=== PATIENT | female | born 1945 | race Caucasian/White ===

== ENCOUNTER 2022-04-29 18:09 | Inpatient (IN) ==
[2022-04-29] MEDS ORDERED: Melatonin 3 MG TABLET PO PRN (22:31)
[2022-04-29] MEDS ORDERED: Naloxone 0.4 MG/ML INJ IVP PRN (22:31)
[2022-04-29] MEDS ORDERED: Ondansetron ODT 4 MG TAB.RAPDIS SL PRN (22:31)
[2022-04-29 23:02] LABS: Basophils % 0.3 %; Eosinophils # 0.1 K/mcL (0.0-0.6); Eosinophils % 1.9 %; Hematocrit 33.4 % (35.3-44.9); Hemoglobin 10.4 g/dL (11.5-15.4); Immature Granulocytes % 2.5 % (0-4); Lymphocytes # 0.8 K/mcL (0.6-4.6); Mean Corpuscular HGB Conc 31.1 g/dL (31.6-35.5); Mean Corpuscular Hemoglobin 30.9 pg (28.0-33.3); Mean Corpuscular Volume 99.1 fL (83.0-100.0); Mean Platelet Volume 10.2 fL (9.4-12.4); Monocytes # 0.3 K/mcL (0.0-1.3); Monocytes % 8.2 %; Neutrophils # 2.4 K/mcL (1.6-8.9); Platelet Count 127 K/mcL (140-400); Red Blood Count 3.37 M/mcL (3.82-4.97); Red Cell Distribution Width 14.9 % (11.5-14.5); Segmented Neutrophils % 65.1 %; White Blood Count 3.6 K/mcL (4.3-11.1)
[2022-04-29 23:18] LABS: Albumin 3.6 g/dL (3.5-5.7); Albumin/Globulin Ratio 1.3 (1.1-2.2); Bilirubin,Total 0.3 mg/dL (0.3-1.0); Calcium 8.6 mg/dL (8.6-10.3); Globulin 2.7 g/dL (2.4-3.5); Magnesium 1.4 mg/dL (1.6-2.6); Phosphorous 5.5 mg/dL (2.7-4.5); Potassium 5.5 mEq/L (3.5-5.1); Total Protein 6.3 g/dL (6.4-8.9)
[2022-04-30] MEDS ORDERED: D5% in Water 1,000 ML IVC PRN (00:16)
[2022-04-30] MEDS ORDERED: Dextrose Gel 15 GM/37.5 ML TUBE PO PRN ×2 (00:16)
[2022-04-30] MEDS ORDERED: *HR* Dextrose 50 % in Water (Syg) 50 ML SYRINGE IVP PRN (00:16)
[2022-04-30 02:06] LABS: Hematocrit 33.1 % (35.3-44.9); Hemoglobin 10.1 g/dL (11.5-15.4); Mean Corpuscular HGB Conc 30.5 g/dL (31.6-35.5); Mean Corpuscular Hemoglobin 30.2 pg (28.0-33.3); Mean Corpuscular Volume 99.1 fL (83.0-100.0); Mean Platelet Volume 10.6 fL (9.4-12.4); Platelet Count 151 K/mcL (140-400); Red Blood Count 3.34 M/mcL (3.82-4.97); Red Cell Distribution Width 14.9 % (11.5-14.5); White Blood Count 3.9 K/mcL (4.3-11.1)
[2022-04-30 02:28] LABS: Calcium 8.4 mg/dL (8.6-10.3); Potassium 5.1 mEq/L (3.5-5.1)
[2022-04-30 02:40] LABS: Thyroid Stimulating Hormone 0.931 mcIU/mL (0.340-5.600)
[2022-04-30] MEDS: Insulin LISPRO 300 UNITS/3 ML VIAL SUBQ SCH ×4 (07:56→19:40)
[2022-04-30] MEDS: Nystatin POWDER 30 GM BOTTLE TP SCH ×2 (09:53→19:40)
[2022-04-30 10:18] LABS: VBG HCO3 17 mEq/L (21-27); VBG PCO2 44 mmHg (41-51); VBG PO2 49 mmHg (25-50)
[2022-04-30 10:32] LABS: Uric Acid 4.4 mg/dL (2.3-7.6)
[2022-04-30 11:06] LABS: Bilirubin,Urine Negative (Negative); Blood,Urine Large (Negative); Clarity,Urine Turbid (Clear); Color,Urine Light-Yellow (Yellow); Glucose,Urine (UA) Normal (Normal); Hyaline Casts,Urine Few per lpf (None Seen); Ketones,Urine Negative (Negative); Leukocyte Esterase,Urine Negative (Negative); Nitrite,Urine Negative (Negative); Protein,Urine 50 mg/dL (Neg-Trace); RBC,Urine TNTC per hpf (0-3); Specific Gravity,Urine 1.018 (1.010-1.025); Squamous Epithelial Cell,Urine Few per hpf (None-Few); Urobilinogen,Urine Normal (Normal); WBC,Urine 15-30 per hpf (0-3)
[2022-04-30 11:07] LABS: Protein/Creatinine Ratio,Urine 0.83 mg/mg (0.00-0.20)
[2022-04-30] MEDS: Sodium Bicarbonate 50 MEQ in 0.45 % Sodium Chloride 1,000 ML IVC SCH ×2 (11:56→22:19)
[2022-04-30 11:58] LABS: Adenovirus Not Detected (Not Detect); Bordetella Pertussis Not Detected (Not Detect); Chlamydophila pneumoniae Not Detected (Not Detect); Coronavirus 229E Not Detected (Not Detect); Coronavirus HKU1 Not Detected (Not Detect); Coronavirus NL63 Not Detected (Not Detect); Coronavirus OC43 Not Detected (Not Detect); Human Metapneumovirus Not Detected (Not Detect); Human Rhinovirus/Enterovirus Not Detected (Not Detect); Influenza A Subtype 2009 H1 Not Detected (Not Detect); Influenza B Not Detected (Not Detect); Mycoplasma pneumoniae Not Detected (Not Detect); Parainfluenza Virus 1 Not Detected (Not Detect); Parainfluenza Virus 2 Not Detected (Not Detect); Parainfluenza Virus 3 Not Detected (Not Detect); Parainfluenza Virus 4 Not Detected (Not Detect); Respiratory Syncytial Virus Not Detected (Not Detect); SARS-CoV-2 Not Detected (Not Detect)
[2022-04-30] MEDS: cefTRIAXone 1,000 MG in Water for inj. (sterile) 10 ML IVP SCH (14:32)
[2022-04-30 21:21] LABS: Complement C3 158 mg/dL (87-200)
[2022-05-01 00:34] LABS: ABG Base Excess -6 mEq/L (-2 to 3); ABG HCO3 16 mEq/L (21-27); ABG Oxygen Saturation 94 % (95-98); ABG PCO2 22 mmHg (35-45); ABG PH 7.46 pH Units (7.32-7.45); ABG PO2 63 mmHg (85-104); ABG TCO2 16 mEq/L (20-26)
[2022-05-01 03:12] LABS: Eosinophils # 0.1 K/mcL (0.0-0.6); Eosinophils % 2.5 %; Hematocrit 32.2 % (35.3-44.9); Hemoglobin 10.2 g/dL (11.5-15.4); Immature Granulocytes % 2.2 % (0-4); Lymphocytes # 1.1 K/mcL (0.6-4.6); Lymphocytes % 31.2 %; Mean Corpuscular HGB Conc 31.7 g/dL (31.6-35.5); Mean Corpuscular Hemoglobin 30.9 pg (28.0-33.3); Mean Corpuscular Volume 97.6 fL (83.0-100.0); Mean Platelet Volume 10.5 fL (9.4-12.4); Monocytes # 0.4 K/mcL (0.0-1.3); Monocytes % 11.9 %; Neutrophils # 1.9 K/mcL (1.6-8.9); Platelet Count 152 K/mcL (140-400); Red Cell Distribution Width 14.8 % (11.5-14.5); Segmented Neutrophils % 52.2 %; White Blood Count 3.6 K/mcL (4.3-11.1)
[2022-05-01 03:19] LABS: Calcium 8.1 mg/dL (8.6-10.3); Potassium 4.6 mEq/L (3.5-5.1)
[2022-05-01 06:10] LABS: Hepatitis B Surface Antigen Nonreactive (Nonreactive)
[2022-05-01 06:40] LABS: Hepatitis A Antibody IgM Nonreactive (Nonreactive); Hepatitis B Core IgM Nonreactive (Nonreactive); Hepatitis C Virus Antibody Nonreactive (Nonreactive)
[2022-05-01] MEDS: Budesonide/Formoterol 160/4.5 1 PUFF INH IH SCH ×2 (07:52→20:30)
[2022-05-01] MEDS: Nystatin POWDER 30 GM BOTTLE TP SCH ×2 (08:30→21:06)
[2022-05-01] MEDS: Fluticasone Propionate Nasal 50 MCG/SPRAY BOTTLE NS SCH (08:30)
[2022-05-01] MEDS: Insulin LISPRO 300 UNITS/3 ML VIAL SUBQ SCH ×4 (08:32→20:20)
[2022-05-01] MEDS: Isosorbide MONOnitrate (24 HR) 30 MG TAB.ER.24H PO SCH (08:32)
[2022-05-01] MEDS: Sucralfate 1 GM TABLET PO SCH ×2 (08:32→15:01)
[2022-05-01] MEDS: Multivit/Ca/Min/Fe/FA 1 TAB TABLET PO SCH (08:32)
[2022-05-01] MEDS: Magnesium Oxide 400 MG TABLET PO SCH (08:32)
[2022-05-01] MEDS: Aspirin Enteric Coated 81 MG Tablet PO SCH ×2 (08:32→19:58)
[2022-05-01] MEDS: allopurinoL 300 MG TABLET PO SCH (08:33)
[2022-05-01] MEDS: cefTRIAXone 1,000 MG in Water for inj. (sterile) 10 ML IVP SCH (08:33)
[2022-05-01] MEDS: Primidone 50 MG TABLET PO SCH ×2 (08:33→19:59)
[2022-05-01] MEDS ORDERED: Pregabalin 75 MG CAPSULE PO SCH (09:00)
[2022-05-01] MEDS: Sodium Bicarbonate 50 MEQ in 0.45 % Sodium Chloride 1,000 ML IVC SCH (13:46)
[2022-05-01] MEDS: *HR* Heparin 5,000 UNIT/ML VIAL SQ SCH ×2 (15:01→22:23)
[2022-05-01 18:54] LABS: Adenovirus F 40/41 PCR Not detected (Not detect); Astrovirus PCR Not detected (Not detect); C.difficile Toxin A/B Gene PCR Not detected (Not detect); Campylobacter by PCR Not detected (Not detect); Cryptosporidium by PCR Not detected (Not detect); Cyclospora cayetanensis PCR Not detected (Not detect); Entamoeba histolytica PCR Not detected (Not detect); Enteroaggregative E.coli(EAEC) Not detected (Not detect); Enteropathogenic E.coli(EPEC) Not detected (Not detect); Enterotoxigenic E.coli (ETEC) Not detected (Not detect); Giardia lamblia PCR Not detected (Not detect); Norovirus GI/GII PCR Not detected (Not detect); Plesiomonas shigelloides PCR Not detected (Not detect); Rotavirus A PCR Not detected (Not detect); Salmonella PCR Not detected (Not detect); Sapovirus PCR Not detected (Not detect); Shig/EnteroinvasiveE coli EIEC Not detected (Not detect); Shigalike tox-prod E coli STEC Not detected (Not detect); Vibrio PCR Not detected (Not detect); Vibrio cholerae PCR Not detected (Not detect); Yersinia enterocolitica PCR Not detected (Not detect)
[2022-05-01] MEDS ORDERED: *HR* HYDROcodone/Acet 10/325 mg TABLET PO ONE (19:29)
[2022-05-01] MEDS ORDERED: Ipratropium/Albuterol Neb 3 ML IH PRN (19:41)
[2022-05-01] MEDS: Pregabalin 50 MG CAPSULE PO SCH (19:58)
[2022-05-01] MEDS ORDERED: QUEtiapine Fumarate 25 MG TABLET PO SCH (21:00)
[2022-05-02] MEDS ORDERED: QUEtiapine Fumarate 25 MG TABLET PO ONE (00:18)
[2022-05-02 02:16] LABS: BUN/Creatinine Ratio 28 (6-26); Blood Urea Nitrogen 27 mg/dL (8-23); Carbon Dioxide 22 mEq/L (23-29); Chloride 111 mEq/L (98-107); Glucose 103 mg/dL (70-105); Osmolality,Calculated 295 (280-300); Potassium 4.1 mEq/L (3.5-5.1); Sodium 140 mEq/L (136-145); eGFR For African Americans > 60 (> 60); eGFR For Non-African Americans 57 (> 60)
[2022-05-02] MEDS: *HR* Heparin 5,000 UNIT/ML VIAL SQ SCH ×2 (05:43→15:37)
[2022-05-02] MEDS: Insulin LISPRO 300 UNITS/3 ML VIAL SUBQ SCH ×3 (08:14→16:45)
[2022-05-02] MEDS: Magnesium Oxide 400 MG TABLET PO SCH (08:26)
[2022-05-02] MEDS: allopurinoL 300 MG TABLET PO SCH (08:26)
[2022-05-02] MEDS: Pregabalin 50 MG CAPSULE PO SCH (08:27)
[2022-05-02] MEDS: Isosorbide MONOnitrate (24 HR) 30 MG TAB.ER.24H PO SCH (08:27)
[2022-05-02] MEDS: Primidone 50 MG TABLET PO SCH (08:27)
[2022-05-02] MEDS: Multivit/Ca/Min/Fe/FA 1 TAB TABLET PO SCH (08:27)
[2022-05-02] MEDS: Aspirin Enteric Coated 81 MG Tablet PO SCH (08:27)
[2022-05-02] MEDS: Sucralfate 1 GM TABLET PO SCH ×2 (08:27→15:37)
[2022-05-02] MEDS: Fluticasone Propionate Nasal 50 MCG/SPRAY BOTTLE NS SCH (08:28)
[2022-05-02] MEDS: Budesonide/Formoterol 160/4.5 1 PUFF INH IH SCH (10:10)
[2022-05-02] MEDS: Nystatin POWDER 30 GM BOTTLE TP SCH (12:38)
[2022-05-02 15:52] VITALS: BP 115/64; PULSE 67; TEMP 98.4
[2022-05-02 16:53] VITALS: O2SAT 99
[2022-05-03 12:40] LABS: ANA IgG by ELISA NONE DETECTED (None Detected)
[2022-05-04 08:45] LABS: ANCA IFA Titer <1:20 (<1:20)
[2022-05-04 10:39] LABS: ANCA IFA Pattern NONE DETECTED (None Detected); Serine Protease-3 Antibody 0 AU/mL (0-19)
== END 2022-05-02 18:43 | disposition home health service (06) | DRG 682 ==
LOC: 2ANU
PROVIDERS: ADMIT Internal Medicine; ATTEND Internal Medicine

== ENCOUNTER 2022-07-31 19:40 | Observation (INO) ==
[2022-08-01] MEDS ORDERED: Ondansetron 4 MG/2 ML VIAL IVP PRN (00:34)
[2022-08-01] MEDS ORDERED: Acetaminophen 325 MG TABLET PO PRN (00:34)
[2022-08-01] MEDS ORDERED: Naloxone 0.4 MG/ML INJ IVP PRN (00:34)
[2022-08-01 01:53] LABS: Bilirubin,Urine Negative (Negative); Blood,Urine Negative (Negative); Clarity,Urine Clear (Clear); Color,Urine Colorless (Yellow); Glucose,Urine (UA) Normal (Normal); Ketones,Urine Negative (Negative); Leukocyte Esterase,Urine Negative (Negative); Nitrite,Urine Negative (Negative); Protein,Urine Negative (Neg-Trace); Specific Gravity,Urine 1.019 (1.010-1.025); Urobilinogen,Urine Normal (Normal)
[2022-08-01] MEDS ORDERED: Dextrose Gel 15 GM/37.5 ML TUBE PO PRN ×2 (02:19)
[2022-08-01] MEDS ORDERED: *HR* Dextrose 50 % in Water (Syg) 50 ML SYRINGE IVP PRN (02:19)
[2022-08-01] MEDS ORDERED: D5% in Water 1,000 ML IVC PRN (02:19)
[2022-08-01 03:03] LABS: Basophils % 0.2 %; Eosinophils # 0.1 K/mcL (0.0-0.6); Eosinophils % 0.9 %; Hematocrit 33.8 % (35.3-44.9); Hemoglobin 10.6 g/dL (11.5-15.4); Immature Granulocytes % 7.2 % (0-4); Lymphocytes # 1.4 K/mcL (0.6-4.6); Lymphocytes % 26.6 %; Mean Corpuscular HGB Conc 31.4 g/dL (31.6-35.5); Mean Corpuscular Hemoglobin 30.1 pg (28.0-33.3); Mean Platelet Volume 10.7 fL (9.4-12.4); Monocytes # 0.7 K/mcL (0.0-1.3); Neutrophils # 2.9 K/mcL (1.6-8.9); Nucleated Red Blood Cells 0.4 /100 WBC (0); Platelet Count 167 K/mcL (140-400); Red Blood Count 3.52 M/mcL (3.82-4.97); Red Cell Distribution Width 15.1 % (11.5-14.5); Segmented Neutrophils % 53.1 %; White Blood Count 5.4 K/mcL (4.3-11.1)
[2022-08-01 03:16] LABS: Adenovirus Not Detected (Not Detect); Bordetella Pertussis Not Detected (Not Detect); Chlamydophila pneumoniae Not Detected (Not Detect); Coronavirus 229E Not Detected (Not Detect); Coronavirus HKU1 Not Detected (Not Detect); Coronavirus NL63 Not Detected (Not Detect); Coronavirus OC43 Not Detected (Not Detect); Human Metapneumovirus Not Detected (Not Detect); Human Rhinovirus/Enterovirus Not Detected (Not Detect); Influenza A Subtype 2009 H1 Not Detected (Not Detect); Influenza B Not Detected (Not Detect); Mycoplasma pneumoniae Not Detected (Not Detect); Parainfluenza Virus 1 Not Detected (Not Detect); Parainfluenza Virus 2 Not Detected (Not Detect); Parainfluenza Virus 3 Not Detected (Not Detect); Parainfluenza Virus 4 Not Detected (Not Detect); Respiratory Syncytial Virus Not Detected (Not Detect); SARS-CoV-2 Not Detected (Not Detect)
[2022-08-01 03:43] LABS: Platelet Estimate Normal (Normal)
[2022-08-01] MEDS ORDERED: Aspirin 325 MG TABLET PO ONE (03:52)
[2022-08-01] MEDS ORDERED: Albuterol 2.5 MG/3 ML NEBULIZER AER SCH (04:00)
[2022-08-01] MEDS: *HR* Metoprolol 5 MG/5 ML VIAL IVP PRN ×2 (05:05→12:22)
[2022-08-01] MEDS ORDERED: Albuterol 2.5 MG/3 ML NEBULIZER IH PRN (05:16)
[2022-08-01 05:25] LABS: Alanine Aminotransferase 15 Units/L (7-52); Albumin 3.7 g/dL (3.5-5.7); Albumin/Globulin Ratio 1.6 (1.1-2.2); Alkaline Phosphatase 125 Units/L (34-104); Aspartate Amino Transferase 18 Units/L (13-39); BUN/Creatinine Ratio 21 (6-26); Bilirubin,Indirect 0.3 mg/dL (0.0-1.0); Bilirubin,Total 0.3 mg/dL (0.3-1.0); Blood Urea Nitrogen 30 mg/dL (8-23); Calcium 8.5 mg/dL (8.6-10.3); Carbon Dioxide 16 mEq/L (23-29); Chloride 112 mEq/L (98-107); Globulin 2.3 g/dL (2.4-3.5); Glucose 101 mg/dL (70-105); Magnesium 1.2 mg/dL (1.6-2.6); Osmolality,Calculated 290 (280-300); Phosphorous 4.2 mg/dL (2.7-4.5); Potassium 5.2 mEq/L (3.5-5.1); Sodium 137 mEq/L (136-145)
[2022-08-01 05:50] LABS: Troponin I < 0.03 ng/mL (< 0.04)
[2022-08-01] MEDS ORDERED: *HR* Heparin 5,000 UNIT/ML VIAL SQ SCH (06:00)
[2022-08-01] MEDS: predniSONE 20 MG TABLET PO SCH (09:06)
[2022-08-01] MEDS ORDERED: Levalbuterol Neb 1.25 MG/3 ML IH SCH ×2 (10:00)
[2022-08-01] MEDS ORDERED: Budesonide/Formoterol 160/4.5 1 PUFF INH IH SCH (10:00)
[2022-08-01] MEDS: Ipratropium Neb 0.5 MG NEBULIZER IH SCH ×3 (10:18→22:27)
[2022-08-01] MEDS: Levalbuterol Neb 0.63 MG/3 ML IH SCH ×3 (10:18→22:27)
[2022-08-01] MEDS ORDERED: *HR* Promethazine 25 MG/ML VIAL IM ONE (10:30)
[2022-08-01] MEDS ORDERED: *HR* Digoxin 0.5 MG/2 ML AMPUL IVP ONE ×2 (11:04→18:12)
[2022-08-01] MEDS ORDERED: *HR* Heparin 5,000 UNIT/ML VIAL IVP PRN ×2 (12:45)
[2022-08-01] MEDS ORDERED: *HR* Heparin 5,000 UNIT/ML VIAL IVP ONE (12:45)
[2022-08-01] MEDS ORDERED: Sodium Bicarbonate 150 MEQ in D5% in Water 1,000 ML IVC SCH (13:15)
[2022-08-01 15:24] LABS: Heparin anti-factor XA UFH < 0.04 IU/mL (0.30-0.70)
[2022-08-01 15:25] LABS: INR 1.1; Prothrombin Time 12.5 Seconds (9.4-12.1)
[2022-08-01] MEDS: Heparin 25,000UNIT/250ML 1/2NS 25,000 UNIT/250 ML IV.SOLN IVC SCH (16:00)
[2022-08-01] MEDS: Azithromycin 500 MG in 0.9 % Sodium Chloride 250 ML IVPB SCH (16:10)
[2022-08-02] MEDS: Ipratropium Neb 0.5 MG NEBULIZER IH SCH ×4 (04:11→20:51)
[2022-08-02] MEDS: Levalbuterol Neb 0.63 MG/3 ML IH SCH ×4 (04:11→20:51)
[2022-08-02 06:28] LABS: Eosinophils % 0.3 %; Hematocrit 32.1 % (35.3-44.9); Hemoglobin 10.3 g/dL (11.5-15.4); Immature Granulocytes % 1.5 % (0-4); Lymphocytes # 1.2 K/mcL (0.6-4.6); Lymphocytes % 34.9 %; Mean Corpuscular HGB Conc 32.1 g/dL (31.6-35.5); Mean Corpuscular Hemoglobin 30.1 pg (28.0-33.3); Mean Corpuscular Volume 93.9 fL (83.0-100.0); Mean Platelet Volume 10.8 fL (9.4-12.4); Monocytes # 0.4 K/mcL (0.0-1.3); Neutrophils # 1.8 K/mcL (1.6-8.9); Platelet Count 153 K/mcL (140-400); Red Blood Count 3.42 M/mcL (3.82-4.97); Red Cell Distribution Width 14.9 % (11.5-14.5); Segmented Neutrophils % 51.3 %; White Blood Count 3.4 K/mcL (4.3-11.1)
[2022-08-02 06:45] LABS: Calcium 8.7 mg/dL (8.6-10.3); Magnesium 1.5 mg/dL (1.6-2.6); Phosphorous 3.6 mg/dL (2.7-4.5); Potassium 4.7 mEq/L (3.5-5.1)
[2022-08-02 06:56] LABS: Thyroid Stimulating Hormone 0.985 mcIU/mL (0.340-5.600)
[2022-08-02] MEDS: predniSONE 20 MG TABLET PO SCH (07:40)
[2022-08-02] MEDS ORDERED: Furosemide 40 MG/4 ML VIAL IVP ONE (08:59)
[2022-08-02] MEDS: Heparin 25,000UNIT/250ML 1/2NS 25,000 UNIT/250 ML IV.SOLN IVC SCH (09:32)
[2022-08-02] MEDS: Multivit/Ca/Min/Fe/FA 1 TAB TABLET PO SCH (09:34)
[2022-08-02] MEDS: Aspirin Enteric Coated 81 MG Tablet PO SCH ×2 (09:34→23:02)
[2022-08-02] MEDS: Cholecalciferol (D-3) 1,000 UNIT (25MCG) TABLET PO SCH (09:34)
[2022-08-02] MEDS: Pregabalin 75 MG CAPSULE PO SCH ×2 (09:35→23:01)
[2022-08-02] MEDS: allopurinoL 300 MG TABLET PO SCH (09:36)
[2022-08-02] MEDS: *HR* Acetylcysteine 20% 600 MG/3 ML ORAL SYRINGE PO SCH (09:36)
[2022-08-02] MEDS: Isosorbide MONOnitrate (24 HR) 30 MG TAB.ER.24H PO SCH (09:36)
[2022-08-02] MEDS: Budesonide Neb 0.5 MG/2 ML IH SCH ×2 (10:00→20:51)
[2022-08-02] MEDS: Primidone 50 MG TABLET PO SCH ×2 (10:46→23:01)
[2022-08-02] MEDS: Azithromycin 500 MG in 0.9 % Sodium Chloride 250 ML IVPB SCH (12:41)
[2022-08-02] MEDS ORDERED: *HR* Warfarin 2.5 MG TABLET PO ONE (18:00)
[2022-08-02] MEDS ORDERED: Warfarin perPT PO PRN (18:00)
[2022-08-02] MEDS ORDERED: Mirtazapine 15 MG TABLET PO SCH (21:00)
[2022-08-03] MEDS: Levalbuterol Neb 0.63 MG/3 ML IH SCH ×3 (04:07→15:45)
[2022-08-03] MEDS: Ipratropium Neb 0.5 MG NEBULIZER IH SCH ×3 (04:07→15:43)
[2022-08-03] MEDS: Heparin 25,000UNIT/250ML 1/2NS 25,000 UNIT/250 ML IV.SOLN IVC SCH (05:07)
[2022-08-03 05:43] LABS: Basophils % 0.3 %; Eosinophils % 0.5 %; Hematocrit 31.7 % (35.3-44.9); Hemoglobin 10.4 g/dL (11.5-15.4); Immature Granulocytes % 2.1 % (0-4); Lymphocytes # 1.6 K/mcL (0.6-4.6); Lymphocytes % 41.8 %; Mean Corpuscular HGB Conc 32.8 g/dL (31.6-35.5); Mean Corpuscular Hemoglobin 30.7 pg (28.0-33.3); Mean Corpuscular Volume 93.5 fL (83.0-100.0); Mean Platelet Volume 10.7 fL (9.4-12.4); Monocytes # 0.5 K/mcL (0.0-1.3); Monocytes % 12.8 %; Neutrophils # 1.6 K/mcL (1.6-8.9); Platelet Count 169 K/mcL (140-400); Red Blood Count 3.39 M/mcL (3.82-4.97); Red Cell Distribution Width 14.7 % (11.5-14.5); Segmented Neutrophils % 42.5 %; White Blood Count 3.8 K/mcL (4.3-11.1)
[2022-08-03 05:50] LABS: Heparin anti-factor XA UFH 0.34 IU/mL (0.30-0.70); INR 1.1; Prothrombin Time 11.7 Seconds (9.4-12.1)
[2022-08-03 06:04] LABS: Calcium 9.1 mg/dL (8.6-10.3); Magnesium 1.6 mg/dL (1.6-2.6); Potassium 4.8 mEq/L (3.5-5.1)
[2022-08-03 07:06] VITALS: TEMP 97.9; O2SAT 100
[2022-08-03] MEDS: Primidone 50 MG TABLET PO SCH (08:00)
[2022-08-03] MEDS: Isosorbide MONOnitrate (24 HR) 30 MG TAB.ER.24H PO SCH (08:01)
[2022-08-03] MEDS: Multivit/Ca/Min/Fe/FA 1 TAB TABLET PO SCH (08:01)
[2022-08-03] MEDS: allopurinoL 300 MG TABLET PO SCH (08:01)
[2022-08-03] MEDS: predniSONE 20 MG TABLET PO SCH (08:01)
[2022-08-03] MEDS: Aspirin Enteric Coated 81 MG Tablet PO SCH (08:01)
[2022-08-03] MEDS: Cholecalciferol (D-3) 1,000 UNIT (25MCG) TABLET PO SCH (08:01)
[2022-08-03] MEDS: Pregabalin 75 MG CAPSULE PO SCH (08:01)
[2022-08-03] MEDS: *HR* Acetylcysteine 20% 600 MG/3 ML ORAL SYRINGE PO SCH (08:02)
[2022-08-03] MEDS: Budesonide Neb 0.5 MG/2 ML IH SCH (10:45)
[2022-08-03 10:51] VITALS: BP 171/93; PULSE 81
[2022-08-03] MEDS: Azithromycin 500 MG in 0.9 % Sodium Chloride 250 ML IVPB SCH (14:07)
[2022-08-03] MEDS ORDERED: *HR* Warfarin 5 MG TABLET PO ONE (18:00)
[2022-08-04] MEDS ORDERED: Aspirin Enteric Coated 81 MG Tablet PO SCH (09:00)
== END 2022-08-03 16:01 | disposition home health service (06) ==
LOC: 2ANU → SUATTDRO 08-01 00:07
PROVIDERS: ADMIT Internal Medicine; ATTEND Pharmacist